=== PATIENT | female | born 2005 | race Caucasian/White ===

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

== ENCOUNTER 2023-11-28 14:10 | Emergency (ER) | payer OTHER ==
[~2023-11-28] VITALS: Ht 160 cm; Wt 65.8 kg
[2023-11-28] MEDS ORDERED: ONDANSETRON HCL 2 MG/ML VIAL IV STA (15:17)
[2023-11-28] MEDS ORDERED: FAMOTIDINE/PF 20 MG/2 ML VIAL IV STA (15:18)
[2023-11-28] MEDS ORDERED: 0.9 % SODIUM CHLORIDE 1,000 ML IV STA (15:19)
[2023-11-28] MEDS ORDERED: FAMOTIDINE/PF 20 MG/2 ML VIAL ONE (15:30)
[2023-11-28] MEDS ORDERED: ONDANSETRON HCL 2 MG/ML VIAL ONE (15:31)
[2023-11-28 16:10] LABS: HEMATOCRIT 39.6 % (36.0-45.00); HEMOGLOBIN 13.5 g/dL (12.0-15.00); MEAN CELL VOLUME 88.8 fL (80.00-100.00); MEAN CORPUSCULAR HEMOGLOBIN 30.2 pg (27.00-32.0); PLATELET COUNT 133 K/uL (150-450); RED BLOOD COUNT 4.46 M/uL (4.00-6.00); RED CELL DISTRIBUTION WIDTH 12.6 % (11.5-14.5)
[2023-11-28 16:31] LABS: ALBUMIN 3.8 gm/dL (3.4-5.0); BILIRUBIN TOTAL 0.53 mg/dL (0.3-1.2); CREATININE SERUM 0.69 mg/dL (0.55-1.02); GFR 108.47; GLOBULINA 4.4 G/DL (2.4-3.5); POTASSIUM 3.54 mEq/L (3.5-5.1); TOTAL PROTEIN 8.2 gm/dL (6.4-8.2)
[2023-11-28] MEDS ORDERED: ACETAMINOPHEN 500 MG GEL..CAP PO ONE (18:45)
== END 2023-11-28 20:03 | disposition home or self-care (01) ==
LOC: ER 14:11 → EMR PED 14:31 → ER 14:31 → EMR PED 20:03
DX: B34.9 Viral infection, unspecified (principal); R53.81 Other malaise; Z20.822 Contact with and (suspected) exposure to COVID-19

== ENCOUNTER 2023-11-30 14:00 | Emergency (ER) | payer OTHER ==
[~2023-11-30] VITALS: Ht 160 cm; Wt 65.8 kg
[2023-11-30 15:01] LABS: HEMATOCRIT 40.3 % (36.0-45.00); HEMOGLOBIN 13.9 g/dL (12.0-15.00); MEAN CELL VOLUME 89.1 fL (80.00-100.00); MEAN CORPUSCULAR HEMOGLOBIN 30.9 pg (27.00-32.0); MEAN CORPUSCULAR HGB CONC 34.6 g/dl (32.0-36.0); RED BLOOD COUNT 4.52 M/uL (4.00-6.00); RED CELL DISTRIBUTION WIDTH 12.8 % (11.5-14.5)
[2023-11-30 15:02] LABS: PLATELET COUNT 88 K/uL (150-450)
== END 2023-11-30 15:26 | disposition home or self-care (01) ==
LOC: ER 14:01 → EMR PED 14:04
PROVIDERS: Emergency Medicine
DX: B34.9 Viral infection, unspecified (principal); A90 Dengue fever [classical dengue]; R53.81 Other malaise